=== PATIENT | female | born 1995 | race Caucasian/White ===

== ENCOUNTER 2021-02-04 17:07 | Outpatient (CLI) | payer OTHER ==
[2021-02-04] MEDS ORDERED: PRENATAL TABLE1 EAC1 PO (17:22)
[2021-02-04] MEDS ORDERED: IRON325 MG PO (17:23)
== END 2021-02-05 12:59 | disposition home or self-care (01) ==
LOC: OBS/DEL 17:07
PROVIDERS: ATTEND Obstetrics & Gynecology
DX: O26.892 Other specified pregnancy related conditions, second trimester (principal); R42 Dizziness and giddiness; Z3A.25 25 weeks gestation of pregnancy

== ENCOUNTER 2021-05-11 09:17 | Outpatient (CLI) | payer OTHER ==
[~2021-05-11 09:17] MED LIST: IRON325 MG PO; PRENATAL TABLE1 EAC1 PO
== END 2021-05-11 09:55 | disposition home or self-care (01) ==
LOC: NST 09:17
PROVIDERS: ATTEND Obstetrics & Gynecology Maternal & Fetal Medicine
DX: Z34.83 Encounter for supervision of other normal pregnancy, third trimester (principal)

== ENCOUNTER 2021-05-15 12:00 | Inpatient (IN) | payer OTHER ==
[~2021-05-15] VITALS: Ht 157.5 cm; Wt 2.3 kg
[2021-05-17] MEDS ORDERED: SYNTHROID75 MCG PO (05:51)
== END 2021-05-20 13:25 | disposition home or self-care (01) | DRG 788 ==
LOC: LDR 05-17 05:18 → OB/GYN 05-17 05:18
PROVIDERS: ADMIT Obstetrics & Gynecology; ATTEND Obstetrics & Gynecology
PROC: 4A1HXCZ Monitoring of Products of Conception, Cardiac Rate, External Approach (ICD-10-PCS; 2021-05-17)
PROC: 10D00Z1 Extraction of Products of Conception, Low, Open Approach (ICD-10-PCS; principal; 2021-05-17 16:00)
DX: O62.1 Secondary uterine inertia (principal); Z3A.40 40 weeks gestation of pregnancy; Z37.0 Single live birth; Z20.822 Contact with and (suspected) exposure to COVID-19

== ENCOUNTER 2021-05-15 14:52 | Outpatient (CLI) | payer OTHER | END 2021-05-15 15:30 | disposition home or self-care (01) | LOC: NST 14:52 | PROVIDERS: ATTEND Obstetrics & Gynecology Maternal & Fetal Medicine | DX: Z34.83 Encounter for supervision of other normal pregnancy, third trimester (principal) ==